=== PATIENT | female | born 1975 ===

== ENCOUNTER → 2017-10-02 | Outpatient (CLI) | payer OTHER ==
[~2017-10-02] MED LIST: TOPI25TA32 PO
== END | disposition home or self-care (01) ==
LOC: RAD 11:17
PROVIDERS: ATTEND Obstetrics & Gynecology
DX: N83.201 Unspecified ovarian cyst, right side (principal); N92.0 Excessive and frequent menstruation with regular cycle; N94.5 Secondary dysmenorrhea; N92.6 Irregular menstruation, unspecified
CPT/HCPCS: 76830

== ENCOUNTER → 2017-10-14 | Outpatient (CLI) | payer OTHER | END | disposition home or self-care (01) | LOC: CFH 13:43 | PROVIDERS: ATTEND Family Medicine | DX: N63.22 Unspecified lump in the left breast, upper inner quadrant (principal); N63.10 Unspecified lump in the right breast, unspecified quadrant | CPT/HCPCS: 76642; 77066 ==

== ENCOUNTER 2017-11-06 05:13 | Day surgery (SDC) | payer OTHER ==
[2017-11-03 14:10] LABS: MICROSCOPIC NOT IND
[2017-11-03 14:10] LABS: BASOPHILS # (AUTO) 0.05 x10^3/uL (0-0.1); BASOPHILS % (AUTO) 1 % (0-1); EOSINOPHILS % (AUTO) 3 % (1-7); LYMPHOCYTES # (AUTO) 2.97 x10^3/uL (1-3.4); LYMPHOCYTES % (AUTO) 32 % (22-44); MD NO; MEAN CORPUSCULAR HEMOGLOBIN 28.2 pg (27.0-34.8); MEAN CORPUSCULAR HGB CONC 33.1 g/dL (32.4-35.8); MEAN CORPUSCULAR VOLUME 85.1 fL (80-100); MEAN PLATELET VOLUME 9.3 fL (7.4-10.4); MONOCYTES # (AUTO) 0.67 x10^3/uL (0.2-0.8); MONOCYTES % (AUTO) 7 % (2-9); NEUTROPHILS # (AUTO) 5.38 x10^3/uL (1.8-6.8); NEUTROPHILS % (AUTO) 57 % (42-75); PLATELET COUNT 281 x10^3/uL (130-400); RED BLOOD COUNT 4.85 x10^6/uL (3.82-5.3); RED CELL DISTRIBUTION WIDTH 15.2 % (9.6-15.2)
[2017-11-03 14:15] LABS: CULTURE INDICATED? NO
[2017-11-03 14:20] LABS: ALANINE AMINOTRANSFERASE 35 U/L (12-78); ALBUMIN 3.8 g/dL (3.4-5.0); ANION GAP 8 mmol/L (5-15); CALCIUM 9.2 mg/dL (8.5-10.1); CHLORIDE 107 mmol/L (98-107); CREATININE 0.91 mg/dL (0.55-1.02)
[2017-11-03 14:27] LABS: ALKALINE PHOSPHATASE 76 U/L (45-117); BILIRUBIN,TOTAL 0.5 mg/dL (0.2-1.0); TOTAL PROTEIN 7.9 g/dL (6.4-8.2)
[~2017-11-06] VITALS: Ht 170.2 cm; Wt 120.2 kg
[~2017-11-06 05:13] MED LIST changes: +ERGO500017 PO; +PSEU120T10 PO
[2017-11-06 06:03] VITALS: BP 116/81
[2017-11-06] MEDS ORDERED: ALBU6.7H INH (06:06)
[2017-11-06] MEDS ORDERED: LACTATED RINGERS 1,000 ML IV SCH (06:07)
[2017-11-06] MEDS ORDERED: ACETAMINOPHEN 500 MG TABLET PO STA (06:40)
[2017-11-06] MEDS ORDERED: ONDANSETRON ODT 8 MG PO STA (06:40)
[2017-11-06] MEDS ORDERED: BUPIVACAINE 0.25% ONE (06:41)
[2017-11-06] MEDS ORDERED: VASOPRESSIN 20 UNIT/ML, 1ML ONE (06:41)
[2017-11-06] MEDS ORDERED: ONDANSETRON ODT 8 MG ONE ×2 (06:41→07:00)
[2017-11-06] MEDS ORDERED: SILVER NITRATE STICK TP ONE (06:41)
[2017-11-06] MEDS ORDERED: ACETAMINOPHEN 500 MG TABLET ONE ×2 (06:42→07:00)
[2017-11-06] MEDS ORDERED: FENTANYL PF 250 MCG/5ML ONE (06:51)
[2017-11-06] MEDS ORDERED: MIDAZOLAM 1 MG/ML, 2ML ONE (06:51)
[2017-11-06] MEDS ORDERED: LIDOCAINE-MPF 2% ,5ML ONE (06:52)
[2017-11-06] MEDS ORDERED: PROPOFOL 10 MG/ML, 20ML ONE (06:52)
[2017-11-06] MEDS ORDERED: PHENYLEPHRINE 10 MG/ML ONE (06:53)
[2017-11-06] MEDS ORDERED: AMPICILLIN 2 GM ONE (06:56)
[2017-11-06] MEDS ORDERED: PROMETHAZINE 25 MG/ML, 1ML IV PRN (07:30)
[2017-11-06] MEDS ORDERED: FENTANYL PF 100 MCG/2ML IV PRN (07:30)
[2017-11-06] MEDS ORDERED: LABETALOL 5MG/ML, 20ML IV PRN (07:30)
[2017-11-06] MEDS ORDERED: hydrALAzine 20 MG/ML, 1ML IV PRN (07:30)
[2017-11-06] MEDS ORDERED: OXYcodone 5 MG/5 ML ORAL.SOL UDC PO PRN (07:30)
[2017-11-06] MEDS ORDERED: MEPERIDINE/PF 25MG/0.5ML IVPush PRN (07:30)
[2017-11-06] MEDS ORDERED: HALOPERIDOL 5 MG/ML IV PRN (07:30)
[2017-11-06] MEDS ORDERED: HYDROmorphone 1 MG/ML, 1ML IV PRN (07:30)
[2017-11-06] MEDS ORDERED: ALBUTEROL HFA 90 MCG/SPRAY ONE (07:37)
[2017-11-06] MEDS ORDERED: KETOROLAC 30 MG/1 ML ONE (07:43)
[2017-11-06] MEDS ORDERED: OXYcodone 5 MG/5 ML ORAL.SOL UDC ONE ×2 (08:23→08:25)
== END 2017-11-06 09:35 ==
LOC: OUT 05:13
PROVIDERS: ATTEND Obstetrics & Gynecology
DX: N92.0 Excessive and frequent menstruation with regular cycle (principal); N94.6 Dysmenorrhea, unspecified; N84.1 Polyp of cervix uteri; J45.909 Unspecified asthma, uncomplicated; E66.01 Morbid (severe) obesity due to excess calories; Z68.41 Body mass index [BMI] 40.0-44.9, adult; Z88.1 Allergy status to other antibiotic agents; Z88.8 Allergy status to other drugs, medicaments and biological substances
CPT/HCPCS: 36415; 58558; 80053; 81003; 84703; 85025; 88305; J1885; J2250; J2370; J2704; J3010; J3490; J7120; Q0162; J0290

== ENCOUNTER → 2018-06-02 | Outpatient (CLI) | payer OTHER ==
[~2018-06-02] MED LIST changes: +ALBU6.7H INH
== END | disposition home or self-care (01) ==
LOC: CFH 14:44
PROVIDERS: ATTEND Family Medicine
DX: N63.20 Unspecified lump in the left breast, unspecified quadrant (principal)

== ENCOUNTER → 2018-10-26 | Outpatient (CLI) | payer OTHER | END | disposition home or self-care (01) | LOC: CFH 14:05 | PROVIDERS: ATTEND Family Medicine | DX: N63.20 Unspecified lump in the left breast, unspecified quadrant (principal); R92.0 Mammographic microcalcification found on diagnostic imaging of breast | CPT/HCPCS: 76641; 77066; G0279 ==

== ENCOUNTER → 2019-06-14 | Outpatient (CLI) | payer OTHER ==
[~2019-06-14] MED LIST changes: -ALBU6.7H INH; +ALBU6.7H8 INH
== END | disposition home or self-care (01) ==
LOC: CFH 14:43
PROVIDERS: ATTEND Family Medicine
DX: R92.2 Inconclusive mammogram (principal)
CPT/HCPCS: 76642; 77065; G0279

== ENCOUNTER → 2019-12-24 | Outpatient (CLI) | payer OTHER | END | disposition home or self-care (01) | LOC: CFH 10:29 | PROVIDERS: ATTEND Family Medicine | DX: N63.22 Unspecified lump in the left breast, upper inner quadrant (principal); R92.1 Mammographic calcification found on diagnostic imaging of breast | CPT/HCPCS: 76642; 77066; G0279 ==